=== PATIENT | male | born 2000 | race Two or more races ===

== ENCOUNTER → 2024-11-05 | Outpatient (CLI) | payer OTHER, SELFPAY ==
--- NOTE | 2024-11-05 14:14 | XR_ITS ---
Examination: Right scapula 2 views Technique one AP Y-view right scapula 2 views Exam date and time: November 05, 2024 1512 hours INDICATIONS: Right shoulder pain 3 weeks. FINDINGS: No shoulder fracture or dislocation Scapula and clavicle and humerus appear intact IMPRESSION: No shoulder fracture noted
== END | disposition home or self-care (01) ==
PROVIDERS: Referring Provider Physician Assistant; Visit Provider Physician Assistant
DX: M25.511 Pain in right shoulder (principal)
CPT/HCPCS: 73010